=== PATIENT | female | born 1960 | race Caucasian/White ===

== ENCOUNTER → 2016-07-16 | Outpatient (CLI) | payer OTHER | END | disposition home or self-care (01) | LOC: NUC 07-14 08:00 | DX: Z51.81 Encounter for therapeutic drug level monitoring (principal); C50.919 Malignant neoplasm of unspecified site of unspecified female breast; Z79.899 Other long term (current) drug therapy; Z92.21 Personal history of antineoplastic chemotherapy; Z88.0 Allergy status to penicillin | CPT/HCPCS: 78472; A9512; A9560 ==

== ENCOUNTER → 2017-02-03 | Outpatient (CLI) | payer OTHER ==
[~2017-02-03] VITALS: Ht 160 cm; Wt 67.1 kg
[~2017-02-03] MED LIST: COLACE100 MG PO; MOVE FREE JOIN1 EACH PO; PEPCID20 MG PO; TYLENOL REGULA325 MG PO; ZYRTEC10 M3 PO
== END | disposition home or self-care (01) ==
LOC: OPR 09:33 → EDSTATUS 10:00
PROC: 0BBJ3ZX Excision of Left Lower Lung Lobe, Percutaneous Approach, Diagnostic (ICD-10-PCS; principal; 2017-02-03)
DX: C78.02 Secondary malignant neoplasm of left lung (principal); Z85.3 Personal history of malignant neoplasm of breast; F17.210 Nicotine dependence, cigarettes, uncomplicated; G89.29 Other chronic pain; Z92.22 Personal history of monoclonal drug therapy; Z92.21 Personal history of antineoplastic chemotherapy
CPT/HCPCS: 71010; 77012; 88305; 88341 TC; 88342 TC; J3010

== ENCOUNTER → 2017-08-17 | Outpatient (CLI) | payer OTHER | END | disposition home or self-care (01) | LOC: NUC 12:54 | DX: C50.919 Malignant neoplasm of unspecified site of unspecified female breast (principal); Z92.21 Personal history of antineoplastic chemotherapy | CPT/HCPCS: 78472; A9512; A9560; J1644 ==